=== PATIENT | female | born 1980 | race Caucasian/White ===

== ENCOUNTER 2016-10-30 10:15 | Outpatient (CLI) | payer OTHER ==
--- NOTE | 2016-10-30 13:44 | DIAGNOSTIC IMAGING REPORT ---
PROCEDURE: MG UNILATERAL DIAG-RT W/CAD INDICATION: ABNORMAL MAMMO RT BREAST TECHNIQUE: Standard CC and MLO views of the right breast. A direct lateral right breast mammogram using CAD. Spot compression of the right breast in the MLO projection. The patient then went to ultrasound where vines-scale and color Doppler sonographic imaging of the right breast was performed. COMPARISON: None available. FINDINGS: Mammograms: Moderately dense, patchy fibroglandular tissue is present anteriorly and superolaterally in the right breast. No discrete persistent focal densities, areas of architectural distortion, or suspicious microcalcification. Specifically, no definite density seen in the superior breast 8 cm from the nipple. Ultrasound: The superior right breast, about 8 cm from the nipple was scanned from the 9 o'clock to 3 o'clock position. The subareolar heterogeneously dense glandular area was also scanned. No evidence of shadowing mass, cyst, or focal vascular abnormality. IMPRESSION: 1. No mammographic or sonographic abnormalities in the right breast to correspond to the previously described finding. 2. The patient can return to yearly screening mammography with routine screening in August 2017. Findings and recommendations were discussed with the patient. RESULT CODE: 1- Negative. A. A negative report should not delay biopsy if a dominant or clinically suspicious mass is present. 10-15% of cancers are not identified by x-ray. B. A negative report may reinforce clinical impression. C. Adenosis and dense breasts may obscure an underlying neoplasm. D. False positive reports average 6-10%. E.. A yearly screening mammogram is recommended. A reminder letter will be scheduled.
== END 2016-10-30 23:00 | disposition home or self-care (01) ==
LOC: MAM SRH 10:15
DX: R92.8 Other abnormal and inconclusive findings on diagnostic imaging of breast (principal)